=== PATIENT | male | born 1980 | race Caucasian/White ===

== ENCOUNTER 2019-11-14 15:50 | Emergency (ER) | payer MEDICAID, SELFPAY ==
[2019-11-14 15:56] VITALS: BP 124/78; PULSE 70; RESP 16; O2SAT 96
--- NOTE | 2019-11-14 16:15 | ED.GENADUL_ITS ---
Discharge Plan Disposition Patient Disposition: HOME Condition: Stable Discharge Details Chief Complaint: Laceration Clinical Impression: Laceration of hand, left ED Provider: Arlet Padilla Home Meds and New Rx's Prescriptions: New clindamycin HCl 300 mg capsule 300 mg PO BID 7 Days Qty: 14 RF: 0 No Action trazodone 100 mg Tablet 100 mg PO DAILY RF: 0 dextroamphetamine-amphetamine [Adderall] 20 mg Tablet 40 mg PO DAILY RF: 0 Discharge Instructions Instructions: Laceration (ED) Additional Instructions: Insert discharge, keep clean and dry no soaking after 24 hours you can run it under running water clean with soap and water. Have sutures removed in 7 to 10 days. Return sooner or be seen if any signs of infection like redness, red streaks pus drainage, increased pain, swelling. Take medications as directed, can take Tylenol or ibuprofen as needed for pain. Medical Decision Making 39-year-old male presents with a 1 cm laceration to the dorsum of his left hand between the fifth and fourth knuckles. He is up-to-date on his tetanus shot. He has full range of motion both flexion and extension of his left hand. No other complaints, no obvious deformity. Wound explored through full range of motion, no foreign body visualized. Wound was extensively irrigated and cleaned with chlorhexidine. See procedure note. Anesthesia achieved with 1% lidocaine with epi. Laceration was repaired with three 4-0 Ethilon simple interrupted sutures patient tolerated well. Clindamycin 300 mg twice daily x7 days was prescribed to treat prophylactically for infection. Patient instructed to have sutures removed in 7 to 10 days, verbalized understanding on home care. Instructed not to soak wound. Strict return instructions given including increased redness, swelling or signs of infection. HPI General Mode of arrival: ambulatory . Date/Time Provider Initiated Documentation: 11/14/19 15:53 . Limitations to Documentation: no limitations . Information obtained by: patient . HPI Narrative: 39-year-old male presents with left hand laceration, this occurred prior to arrival and was cut on a rock. Allen-shaped laceration noted between the fifth and fourth digits partial- thickness. He does have full range of motion to his hand is able to extend and flex fingers. He reports that he has had a tetanus shot in the last 5 to 10 years. Related Data Home Medications Medication Instructions Recorded Confirmed clindamycin HCl 300 mg PO BID 7 Days #14 cap 11/14/19 dextroamphetamine-amphetamine 40 mg PO DAILY 11/14/19 11/14/19 [Adderall] trazodone 100 mg PO DAILY 11/14/19 11/14/19 Previous Rx's Medication Instructions Recorded clindamycin HCl 300 mg PO BID 7 Days #14 cap 11/14/19 Allergies Allergy/AdvReac Type Severity Reaction Status Date / Time No Known Allergies Allergy Unverified 11/14/19 16:00 General Stated Complaint: Laceration ALISA: 4 Review of Systems Narrative: Constitutional: Negative for weight loss, alert and oriented, well groomed, normal body habitus, appears comfortable. HEENT: Denies trauma, headaches, blurry vision, nasal discharge, sore throat, trouble swallowing. Chest: Denies chest pain, palpitations, irregular rhythm, hypertension. Respiratory: Denies Shortness of breath, cough, hemoptysis. Skin: Positive laceration noted to his left hand. [facility] Social History Smoking/Tobacco Use Status: Never Substance use type: does not use Exam Narrative Exam Narrative: Constitutional: Allert and oriented x3. Appears stated age. Normal body habitus. Head: Normocephalic, no trauma. Eyes: Pupils PERRLA, Red reflex noted, EOM's intact. Eyelids symmetrical withour lesions, discharge, or swelling. Chest: RRR, Normal S1, S2, distal pulses intact. Resp: Lungs clear to auscultation bilaterally, no wheezes, rales, or rhonchi. Musculoskeletal: Normal gait, 5/5 strength to all four extremities. Skin: Capillary refill less than 2 sec. 1 cm crescent-shaped laceration noted to the dorsum of the left hand between the fourth and fifth knuckles. Full range of motion to fingers and hand. Neurologic: Cranial nerves II-XII intact. Alert and oriented x 3. DTR's intact. Course Vital Signs Vital signs: Vital Signs Pulse 70 11/14/19 15:56 Respiratory Rate 16 11/14/19 15:56 Blood Pressure 124/78 11/14/19 15:56 Pulse Oximetry 96 11/14/19 15:56 Pulse 70 11/14/19 15:56 Respiratory Rate 16 11/14/19 15:56 Respiratory Effort Non-Labored 11/14/19 15:56 Blood Pressure 124/78 11/14/19 15:56 Pulse Oximetry 96 11/14/19 15:56 Oxygen Delivery Method Room Air 11/14/19 15:56 Oxygen Flow Rate 0 11/14/19 15:56 Pain Level 7 11/14/19 15:56 Procedures Laceration Laceration 1: Site: hand Side (If applicable): left Size (cm): 1 Description: stellate (crescent shaped) Depth: simple, single layer Local Anesthetic: Lidocaine 1% and with Epi Amount of anesthesia used (mL): 1 Pre-repair: wound explored, irrigated extensively and deep structures intact Skin layer closed with: nylon Size (cm): 4-0 Number of sutures: 3 Technique: simple, interrupted
== END 2019-11-14 17:20 | disposition home or self-care (01) ==
LOC: ER 17:23
PROVIDERS: Emergency Provider Registered Nurse Emergency; PCP Internal Medicine
DX: S61.412A Laceration without foreign body of left hand, initial encounter (principal); W26.8XXA Contact with other sharp object(s), not elsewhere classified, initial encounter
CPT/HCPCS: 12001

== ENCOUNTER 2019-11-22 17:00 | Emergency (ER) | payer MEDICAID, SELFPAY ==
[2019-11-22 17:07] VITALS: BP 144/80; PULSE 67; TEMP 37.1; O2SAT 96
--- NOTE | 2019-11-22 17:08 | W.ED.GENAD ---
Discharge Plan Disposition Patient Disposition: HOME Condition: Stable Discharge Details Chief Complaint: Cellulitis Clinical Impression: Laceration of left hand with infection Primary Care Provider: LOPEZ RUBIO ED Provider: Anali Arteaga Home Meds and New Rx's Prescriptions: New sulfamethoxazole-trimethoprim [Bactrim DS] 800-160 mg tablet 1 tab PO BID Qty: 20 RF: 0 mupirocin 2 % ointment 1 applic TP TID Qty: 15 RF: 0 No Action trazodone 100 mg Tablet 100 mg PO DAILY RF: 0 dextroamphetamine-amphetamine [Adderall] 20 mg Tablet 40 mg PO DAILY RF: 0 Discharge Instructions Instructions: Laceration (ED) Additional Instructions: Keep hand elevated for swelling as best possible. Use antibiotics as prescribed. Soak hand with warm water and Epsom salt for 5 minutes, then wash with soap and water, rinse and pat dry. Then apply topical antibiotic ointment as discussed. Use Jovi wrap for support. Have wound check in 5 days as discussed. Return sooner if needed for worsening. Expect improvement in 2 to 3 days. Alternate ibuprofen and Tylenol as discussed for relief of pain if needed. Return to the emergency room for fever, increase in swelling, worsening pain, difficulty with range of motion of your hand or alarming symptoms sooner if needed Medical Decision Making This is a pleasant 39-year-old patient presenting to the emergency room for complaints of concern of wound infection. Patient had sutures placed 7 days ago. Patient reports redness and swelling present at wound edges and swelling surrounding on the dorsal aspect of his laceration left hand between the fourth and fifth digits. Patient sustained laceration after a rock struck the area. Patient has no concern for fracture. Patient is also reporting a small area of redness lateral to his right nares which has developed in the last few days. Patient has a history of MRSA and is concerned with development of MRSA infection. Patient has been compliant with clindamycin previously prescribed at time of sutures being placed. Patient continues to develop redness and increased pain over the last few days. Patient denies any systemic symptoms of infection. On exam patient has notable swelling to the dorsal aspect of his hand, redness focally surrounding laceration, [address], mild wound laxity noted. No obvious drainage. Patient is well-appearing in general, vital signs reviewed, mild hypertension noted otherwise afebrile and non-tachycardic. Patient also does have a small area of redness without associated abscess on the right lateral knee external nares. Nothing to indicate Sulma synovitis on exam. Exam consistent with focal cellulitis. Patient does have mild tenderness with palpation of the fifth digit and does have some pain with flexion and extension but no obvious tendon injury. Single suture removed at distal aspect of wound. Culture attempted from bloody drainage present but no purulence present. Discussed antibiotic treatment. Patient does prefer Bactrim as he has responded well to Bactrim in the past. Will prescribe Bactrim DS x10 days will give initial dose in the ER prior to discharge, refill patient's mupirocin which she has been using on wound beginning today. Encouraged elevation of hand, Jovi wrap provided for comfort. Wound care discussed at length. Plan to recheck in 5 days for remaining sutures to be removed. Patient agrees with plan of care. Precautions discussed for which patient should return The patient was stable and requested discharge. Prior to discharge, my usual and customary return precautions were reviewed with the patient - this included follow-up instructions and reasons to return to the Emergency Department if conditions worsens, does not improve as expected, or other new concerns arise. HPI General Date/Time Provider Initiated Documentation: 11/22/19 17:02. HPI Narrative: Is a 39-year-old patient presenting to the emergency room for concerns of hand infection. Patient reports sutures placed 7 days ago after a piece of stone struck his hand on the dorsal aspect of his left hand between his fourth and fifth digits. Patient had 3 sutures placed. Patient reports increased pain and swelling associated with redness. Patient does report a history of MRSA. Patient completed a course of clindamycin. Patient reports he is also developing an area of redness on the outside of his right nares. Patient is concerned with a possible return of MRSA infection. Patient reports pain with range of motion of the hand, increased swelling. No redness or swelling radiating proximal to the wrist. Patient denies fever, chills or systemic symptoms. No other concerns or complaints at this time. Related Data Home Medications Medication Instructions Recorded Confirmed dextroamphetamine-amphetamine 40 mg PO DAILY 11/14/19 11/22/19 [Adderall] trazodone 100 mg PO DAILY 11/14/19 11/22/19 mupirocin 1 applic TP TID #15 gm 11/22/19 sulfamethoxazole-trimethoprim 1 tab PO BID #20 tab 11/22/19 [Bactrim DS] Previous Rx's Medication Instructions Recorded mupirocin 1 applic TP TID #15 gm 11/22/19 sulfamethoxazole-trimethoprim 1 tab PO BID #20 tab 11/22/19 [Bactrim DS] Allergies Allergy/AdvReac Type Severity Reaction Status Date / Time No Known Allergies Allergy Unverified 11/22/19 17:14 General ALISA: 4 Review of Systems All systems reviewed & are unremarkable except as noted in HPI and below Constitutional Constitutional: Denies chills, Denies fatigue, Denies fever(s), Denies headache(s) and Denies malaise ENT Ears, Nose, Mouth, and Throat: Denies headache(s) Musculoskeletal Musculoskeletal: Denies deformity, Denies numbness and Denies tingling Integumentary/Breasts Skin/Breast: Reports erythema, Reports skin pain, Reports skin swelling and Reports wounds Neurologic Neurologic: Denies headache(s), Denies numbness and Denies tingling Endocrine Endocrine: Denies fatigue [facility] Social History Smoking/Tobacco Use Status: Never Alcohol Intake: current Alcohol Intake frequency: a few times a week Substance use type: does not use Do you feel safe at home: Yes Do you feel safe in your relationship?: Yes Exam Narrative Exam Narrative: CONST: Healthy appearing patient, in no acute distress. Well hydrated. Alert and oriented. MUSCULOSKELETAL: Focused exam left arm: full range of motion of wrist. Dorsal hand pain with palpation along the fifth metacarpal. Patient with edema noted to the dorsal aspect of the left hand. Flexion extension intact through the digits however pain with extension of the fifth digit. Nothing to indicate Sulma synovitis at this time. SKIN: Dry. No rashes. patient with [address] on the dorsal aspect of the left hand between the fourth and fifth digits. Erythema surrounding the wound. Distal suture removed, mild bloody drainage with no obvious purulence, culture obtained. Swelling present focally. Mild laxity of wound edges. 2 sut[address] remain proxim[address] in place. NEURO: Alert and awake. Speech clear. Sensation intact throughout hand. PSYCH: Normal affect. Cooperative.
[2019-11-22] MEDS: Sulfameth/Trimeth DS TAB 1 TAB PO (17:56)
== END 2019-11-22 17:55 | disposition home or self-care (01) ==
PROVIDERS: Emergency Provider Physician Assistant; PCP Internal Medicine
DX: L03.114 Cellulitis of left upper limb (principal); S61.412A Laceration without foreign body of left hand, initial encounter; W26.8XXA Contact with other sharp object(s), not elsewhere classified, initial encounter
CPT/HCPCS: 87077; 99283; 87070; 87186; 87205

== ENCOUNTER 2020-01-09 22:49 | Emergency (ER) | payer MEDICAID, SELFPAY ==
--- NOTE | 2020-01-09 22:45 | DI.RAD_ITS ---
EXAM: XR SHOULDER LT COMPLETE 2+V CLINICAL HISTORY: pain s/p fall off skateboard. TECHNIQUE: 2D digital imaging was performed. COMPARISON: No exams were available for comparison FINDINGS: BONES: There is a comminuted displaced fracture of the midshaft of the left clavicle. The large late ral fracture fragment is 1-2 shaft's width inferiorly located relative to the medial fracture fragmen t. No bony destructive lesion is seen. JOINTS: No dislocation present. SOFT TISSUE: Mild edema associated with the clavicular fracture. IMPRESSION: Comminuted displaced fracture of the midshaft of the left clavicle. DATA REPOSITORY: RADIATION DOSE DELIVERED:
--- NOTE | 2020-01-09 22:45 | DI.RAD_ITS ---
EXAM: XR CLAVICLE LT CLINICAL HISTORY: pain s/p fall off skateboard TECHNIQUE: 2D digital imaging was performed. COMPARISON: No exams were available for comparison FINDINGS: BONES: There is a comminuted fracture of the mid left clavicle. The dominant lateral fracture fragme nt is 2 shaft's width inferior to the medial clavicular fragment. JOINTS: No dislocation present. SOFT TISSUE: Mild associated soft tissue edema. IMPRESSION: Comminuted displaced mid left clavicular fracture. DATA REPOSITORY: RADIATION DOSE DELIVERED:
[2020-01-09 22:54] VITALS: PULSE 102; RESP 16; TEMP 36.9; O2SAT 97
--- NOTE | 2020-01-09 22:56 | W.ED.GENAD ---
Discharge Plan Disposition Patient Disposition: HOME Condition: Stable Discharge Details Chief Complaint: Orthopedic Clinical Impression: Fracture of clavicle, left, closed Primary Care Provider: LOPEZ RUBIO ED Provider: Shaji Osborn Home Meds and New Rx's Prescriptions: New oxycodone 5 mg tablet 5 mg PO Q6H PRNQty: 10 RF: 0 Continued trazodone 100 mg Tablet 100 mg PO DAILY RF: 0 dextroamphetamine-amphetamine [Adderall] 20 mg Tablet 40 mg PO DAILY RF: 0 No Action mupirocin 2 % ointment 1 applic TP TID Qty: 15 RF: 0 Discharge Instructions Instructions: Clavicle Fracture (ED) Additional Instructions: call orthopedics on Saturday for an appointment you can take 1000mg tylenol and 600mg ibuprofen every 6 hours for pain if you take the oxycodone do not drink alcohol or operate heavy machinery Referrals: Senthil Roth MD [ [facility] STAFF PHYSICIAN] - Medical Decision Making 39 yo male was riding a scateboard when he fell off and landed on left shoulder. He denies hitting his head or loc and denies headache, neck pain, chest pain, dyspnea, abdominal pain, leg pain or right arm pain. He localizes the pain to the mid to distal clavicle with a deformity present, no broken skin. Has some abrasions on the arm as well but no pain with palpation over the humerus, elbow, forearm, wrist or hand. Has full rom of the hand, wrist and elbow with intact sensation and pulses. Limited rom of the left shoulder due to the pain. No midline neck pain even with palpation and full range of motion without pain. No chest or back tenderness and no abdominal tenderness, normal gait walking into the room. Will xray clavicle and shoulder. xray confirms clavicle fx. Will place in sling and d/c homeand have him f/u with ortho Differential Diagnosis Differential Diagnosis: fracture, dislocation Imaging Data Radiologic Study: Attestation: I personally reviewed and interpreted this imaging study as follows: Imaging: X-Ray Radiologist's impression: IMPRESSION: Comminuted, displaced mid left clavicular fracture with overriding/foreshortening. Radiologic Study #2: Attestation: I personally reviewed and interpreted this imaging study as follows: Imaging: X-Ray Radiologist's impression: IMPRESSION: Comminuted, displaced mid left clavicular fracture with overriding/foreshortening. HPI General Mode of arrival: ambulatory. Date/Time Provider Initiated Documentation: 01/09/20 22:51. Limitations to Documentation: no limitations. Information obtained by: patient. History of Present Illness 39 year old M presents to the emergency department with the chief complaint of left shoulder pain, described as moderate, and it has been constant. No relieving factors improve symptom(s), No exacerbating factors reported . Patient did receive the following treatments prior to arrival, none Related Data Home Medications Medication Instructions Recorded Confirmed dextroamphetamine-amphetamine 40 mg PO DAILY 11/14/19 01/09/20 [Adderall] trazodone 100 mg PO DAILY 11/14/19 01/09/20 mupirocin 1 applic TP TID #15 gm 11/22/19 01/09/20 oxycodone 5 mg PO Q6H PRN #10 tab 01/09/20 Previous Rx's Medication Instructions Recorded mupirocin 1 applic TP TID #15 gm 11/22/19 oxycodone 5 mg PO Q6H PRN #10 tab 01/09/20 Allergies Allergy/AdvReac Type Severity Reaction Status Date / Time No Known Allergies Allergy Unverified 01/09/20 22:58 General ALISA: 4 Review of Systems All systems reviewed & are unremarkable except as noted in HPI and below Constitutional Constitutional: Denies chills, Denies fever(s) and Denies weakness Cardiovascular Cardiovascular: Denies chest pain and Denies dyspnea Respiratory Respiratory: Denies cough and Denies dyspnea Gastrointestinal Gastrointestinal: Denies abdominal pain, Denies nausea and Denies vomiting Neurologic Neurologic: Denies weakness Psychiatric Psychiatric: Denies depression [facility] Social History Smoking/Tobacco Use Status: Never Alcohol Intake: current Alcohol Intake frequency: a few times a week Substance use type: does not use Do you feel safe at home: Yes Do you feel safe in your relationship?: Yes Exam Const General: no acute distress Orientation: alert HENMT Head: normal to inspection Ears: external ears normal General nose exam: external nose normal Mouth: moist mucous membranes Eyes General: appearance normal, both eyes and all related structures Neck Neck: normal visual inspection Resp Effort & Inspection: normal respiratory effort and able to speak in complete sentences Cardio Rate: regular rate GI Palpation: soft and nontender Skin General skin exam: no rashes or lesions noted Neuro General: patient alert and patient oriented x3 Extrem General: capillary refill normal Psych Mental Status: mental status grossly normal
[2020-01-09] MEDS: HYDROmorphone 2 MG/ML VIAL 1 MG IM (23:00)
--- NOTE | 2020-01-09 23:22 | DI.VRAD_ITS ---
PROCEDURE INFORMATION: Exam: XR Left Clavicle, Complete Exam date and time: 01/09/2020 11:11 PM Age: 39 years old Clinical indication: Shoulder; Left; Patient HX: Pain S/P fall off skateboard TECHNIQUE: Imaging protocol: XR Left clavicle complete. Any number of views. COMPARISON: No relevant prior studies available. FINDINGS: Bones/joints: There is comminuted, displaced left mid clavicular fracture with overriding/foreshortening. There is approximately 1-2 shaft width inferior displacement of the dominant distal fracture fragment. There are mild degenerative changes of the left AC joint with chronic appearing fragmentation, either degenerative or related to old trauma. Acromioclavicular and coracoclavicular intervals are preserved. No glenohumeral dislocation. Soft tissues: Moderate soft tissue edema centered upon the mid left clavicle. IMPRESSION: Comminuted, displaced mid left clavicular fracture with overriding/foreshortening. Dictated and Authenticated by: Tavo Jose MD. Ordering:MAO Girard MD
--- NOTE | 2020-01-09 23:23 | DI.VRAD_ITS ---
PROCEDURE INFORMATION: Exam: XR Left Shoulder Exam date and time: 01/09/2020 11:13 PM Age: 39 years old Clinical indication: Shoulder; Left; Patient HX: Pain S/P fall off skateboard TECHNIQUE: Imaging protocol: XR Left shoulder. Views: 2 or more views. COMPARISON: No relevant prior studies available. FINDINGS: Bones/joints: There is comminuted, displaced left mid clavicular fracture with overriding/foreshortening, better characterized on dedicated left clavicle radiograph acquired concurrently. There are mild degenerative changes of the left AC joint with chronic appearing fragmentation, either degenerative or related to old trauma. Acromioclavicular and coracoclavicular intervals are preserved. No glenohumeral dislocation. Soft tissues: Moderate soft tissue edema centered upon the mid left clavicle. IMPRESSION: Comminuted, displaced mid left clavicular fracture with overriding/foreshortening. Dictated and Authenticated by: Tavo Jose MD. Ordering:MAO Girard MD
[2020-01-09 23:30] VITALS: PULSE 90; RESP 16; TEMP 36.9; O2SAT 97
--- NOTE | 2020-01-10 17:10 | W.ED.FU ---
[facility] called the ED stating that pt is there claiming he lost his prescription for oxycodone. Patient searched on [place] [employer] and no previous narcotic prescriptions noted. Pt broke his clavicle yesterday and is in pain. Patient then came to the ED. He was given a prescription for 5 tabs. He stated that local pharmacies were now closed. He was given a premade bottle of 4 tabs of 5 mg oxycodone and a prescription for 5 tabs.
--- NOTE | 2020-01-10 17:19 | NUR.NOTE ---
pt returned states that he did not have his RX for more pain meds . he was dispensed another 4 tabs with no RXNursing Note:
== END 2020-01-09 23:40 | disposition home or self-care (01) ==
PROVIDERS: Emergency Provider Emergency Medicine; PCP Internal Medicine
DX: S42.022A Displaced fracture of shaft of left clavicle, initial encounter for closed fracture (principal); S40.812A Abrasion of left upper arm, initial encounter; V00.131A Fall from skateboard, initial encounter; Y93.51 Activity, roller skating (inline) and skateboarding
CPT/HCPCS: 23500; 96372; 99284; 73000; 73030; 99281; L3650

== ENCOUNTER 2020-01-17 13:01 | Emergency (ER) | payer MEDICAID, SELFPAY ==
[2020-01-17 13:05] VITALS: BP 133/73; PULSE 90; RESP 14; TEMP 37.1; O2SAT 98
--- NOTE | 2020-01-17 13:24 | ED.GENADUL_ITS ---
Discharge Plan Disposition Patient Disposition: HOME Condition: Improving Discharge Details Chief Complaint: GenMedical Clinical Impression: Fracture of clavicle, left, closed Primary Care Provider: LOPEZ RUBIO ED Provider: Hans Anna Home Meds and New Rx's Prescriptions: New oxycodone 5 mg tablet See Rx Instructions .ROUTE .COMPLEX PRNQty: 14 RF: 0 Narcan 4 mg/actuation spray,non-aerosol 4 mg CORNEL Q2M PRNQty: 1 RF: 0 Continued trazodone 100 mg Tablet 100 mg PO DAILY RF: 0 dextroamphetamine-amphetamine [Adderall] 20 mg Tablet 40 mg PO DAILY RF: 0 No Action mupirocin 2 % ointment 1 applic TP TID Qty: 15 RF: 0 oxycodone 5 mg tablet 5 mg PO Q6H PRNQty: 10 RF: 0 oxycodone 5 mg tablet 5 mg PO Q6H PRN (Reason: pain) Qty: 5 RF: 0 Discharge Instructions Instructions: Clavicle Fracture (ED) Additional Instructions: Continue to wear sling while awake and out of bed. Apply ice to reduce pain and swelling. May use Tylenol 650 to 975 mg every 6 hours, ibuprofen 800 mg every 8 hours, with food as needed for pain. May use the prescribed oxycodone for severe/breakthrough pain. No alcohol or driving with this medication. Current state recommendations are for you to have a prescription for Narcan to reverse any oversedation. We have placed you on the orthopedic referral/follow-up list. Please call the office at [phone] for an appointment time this week. Medical Decision Making 39-year-old male who was seen on January 08 for clavicle injury after fall off a motorized skateboard. He states he was confused about follow-up and finally asked his primary care to refer him to orthopedist in [place]. He states that he has had to use narcotic analgesia to control his pain, but has now run out of his prescribed amount due to the delay in follow-up. He has not had any shortness of breath, motor weakness or numbness. A [place] prescription monitoring systems check was performed with only the previously known prescription for narcotic. I will prescribe the patient oxycodone for severe/breakthrough pain. He will continue to wear his sling, ice, and did request repeat referral to orthopedics within our system. He understands homecare, indications for return evaluation. I discussed with him repeat x-ray today which he declined. He is stable for discharge with outpatient orthopedic follow-up. HPI General Mode of arrival: ambulatory . Date/Time Provider Initiated Documentation: 01/17/20 13:04 . Limitations to Documentation: no limitations . Information obtained by: patient . History of Present Illness 39 year old M presents to the emergency department with the chief complaint of Persistent left collarbone pain, no pain medicines, described as moderate and severe, Quality is described as dull and constant, and is localized to the left and upper extremity. Patient reports no radiation. Patient started experiencing this day(s) and it has been constant. Rest improves symptom(s), Movement worsens symptoms . Patient notes denies chest pain and shortness of breath. Patient did receive the following treatments prior to arrival, cold therapy Related Data Home Medications Medication Instructions Recorded Confirmed dextroamphetamine-amphetamine 40 mg PO DAILY 11/14/19 01/09/20 [Adderall] trazodone 100 mg PO DAILY 11/14/19 01/09/20 mupirocin 1 applic TP TID #15 gm 11/22/19 01/09/20 oxycodone 5 mg PO Q6H PRN #10 tab 01/09/20 oxycodone 5 mg PO Q6H PRN #5 tab 01/10/20 naloxone [Narcan] 4 mg CORNEL Q2M PRN #1 each 01/17/20 oxycodone See Rx Instructions .ROUTE 01/17/20 .COMPLEX PRN #14 tab Previous Rx's Medication Instructions Recorded mupirocin 1 applic TP TID #15 gm 11/22/19 oxycodone 5 mg PO Q6H PRN #10 tab 01/09/20 oxycodone 5 mg PO Q6H PRN #5 tab 01/10/20 naloxone [Narcan] 4 mg CORNEL Q2M PRN #1 each 01/17/20 oxycodone See Rx Instructions .ROUTE 01/17/20 .COMPLEX PRN #14 tab Allergies Allergy/AdvReac Type Severity Reaction Status Date / Time No Known Allergies Allergy Unverified 01/17/20 13:09 General Stated Complaint: GenMedical ALISA: 4 Review of Systems Narrative: No difficulty breathing. No other injury. See HPI. 4 systems rev iewed and otherwise negative [facility] Social History Smoking/Tobacco Use Status: Never Alcohol Intake: current Alcohol Intake frequency: a few times a week Drug use: Never Substance use type: does not use Do you feel safe at home: Yes Do you feel safe in your relationship?: Yes Exam Narrative Exam Narrative: GEN: awake, alert, oriented 3. Pleasant, well groomed, interactive. Tearful HEAD: Normocephalic, atraumatic ENT: Mucous membranes moist, oropharynx unremarkable, External ear exam unremarkable EYES: PERRL, EOMI NECK: Full ROM, no ASHLY, no menigismus CHEST/RESP: Left superior anterior chest wall with mild swelling, ecchymosis, no crepitus. Tender along midshaft clavicle CARDIOVASCULAR: RRR, no murmur, rub albaro. 2+ Rad pulse bilateral EXT: Motor 5 out of 5 in the bilateral upper extremity. Left clavicle tenderness, swelling, ecchymosis. Distal motor and sensory testing is normal. Neuro: Grossly normal neurologic exam, conversant, interactive. Psych: Speech fluent, thoughts congruent, affect normal Course Vital Signs Vital signs: Vital Signs Temperature 37.1 C 01/17/20 13:05 Pulse 90 01/17/20 13:05 Respiratory Rate 14 01/17/20 13:05 Blood Pressure 133/73 01/17/20 13:05 Pulse Oximetry 98 01/17/20 13:05 Temperature 37.1 C 01/17/20 13:05 Temperature Source Skin 01/17/20 13:05 Pulse 90 01/17/20 13:05 Respiratory Rate 14 01/17/20 13:05 Respiratory Effort Non-Labored 01/17/20 13:12 Respiratory Depth Normal 01/17/20 13:12 Respiratory Pattern Normal 01/17/20 13:12 Blood Pressure 133/73 01/17/20 13:05 Blood Pressure Position Sitting 01/17/20 13:05 Pulse Oximetry 98 01/17/20 13:05 Oxygen Delivery Method Room Air 01/17/20 13:05 Oxygen Flow Rate 0 01/17/20 13:05 Pain Level 10 01/17/20 13:05
== END 2020-01-17 13:47 | disposition home or self-care (01) ==
LOC: ER 13:40
PROVIDERS: Emergency Provider Emergency Medicine; PCP Internal Medicine
DX: S42.022A Displaced fracture of shaft of left clavicle, initial encounter for closed fracture (principal); V00.131A Fall from skateboard, initial encounter; Z76.0 Encounter for issue of repeat prescription
CPT/HCPCS: 99283; 99282